=== PATIENT | female | born 1965 | race Caucasian/White ===

== ENCOUNTER → 2024-03-22 | Outpatient (CLI) | payer BC, SELFPAY ==
[2024-03-22 10:28] LABS: Collection Type, Urine Clean Catch
[2024-03-22 10:51] LABS: Basophils % (Auto) 1 % (0-2.5); Eosinophils # (Auto) 0.1 Thou/mm3 (0.0-0.5); Eosinophils % (Auto) 2 % (0-10); Hematocrit 40.3 % (36.0-46.0); Immature Granulocytes % (Auto) 0 % (0-0); Immature Granulocytes Auto 0.02 Thou/mm3 (0.00-0.00); Lymphocytes # (Auto) 0.9 Thou/mm3 (1.0-4.8); Lymphocytes % (Auto) 19 % (10-50); Mean Corpuscular HGB Conc 32.3 g/dl (31.0-37.0); Mean Corpuscular Hemoglobin 29.1 pg (25.0-35.0); Mean Corpuscular Volume 90 fL (80-100); Monocytes # (Auto) 0.5 Thou/mm3 (0.0-0.8); Monocytes % (Auto) 11 % (0-12); Neutrophils # (Auto) 3.3 Thou/mm3 (1.8-7.7); Neutrophils % (Auto) 68 % (37-80); Nucleated Red Blood Cell % 0 /100 WBC (0); Platelet Count 325 Thou/mm3 (140-440); Red Blood Count 4.46 Miln/mm3 (4.00-5.20); White Blood Count 4.8 Thou/mm3 (3.6-11.0)
[2024-03-22 10:59] LABS: Bilirubin,Urine Negative (Negative); Blood,Urine Negative (Negative); Clarity,Urine Clear (Clear/Hazy); Color,Urine Lt-Yellow (Lt Yel-Yel); Culture Indicated,Urine Not Indicated; Glucose, Urine Negative (Negative); Ketones,Urine Negative (Negative); Leukocyte Esterase,Urine Negative (Negative); Nitrite,Urine Negative (Negative); PH,Urine 6.5 (5.0-7.0); Protein,Urine Negative (Neg - Trace); RBC,Urine 1 /hpf (0-3); Specific Gravity,Urine 1.014 (1.001-1.035); Squamous Epithelial Cell,Urine < 1 /hpf (0-5); Urobilinogen,Urine Negative mg/dL (0.0-1.0); WBC,Urine < 1 /hpf (0-5)
[2024-03-22 11:00] LABS: Alanine Aminotransferase 16 U/L (10-49); Albumin, Serum 4.8 gm/dL (3.5-5.0); Anion Gap 8 (7-16); Aspartate Amino Transferase < 8 U/L (0-34); BUN/Creatinine Ratio 24 Ratio (12-20); Bilirubin,Total 0.5 mg/dL (0.3-1.2); Blood Urea Nitrogen 19 mg/dL (9-23); C-Reactive Protein < 0.4 mg/dL (0.0-0.9); Calcium 9.8 mg/dL (8.3-10.6); Calcium (Corrected) 9.8 mg/dL (8.5-10.1); Carbon Dioxide 31.2 mMol/L (20.0-31.0); Chloride 101 mMol/L (98-107); Creatinine (Component) 0.8 mg/dL (0.6-1.3); Globulin 2.3 gm/dL (2.3-3.5); Glucose 92 mg/dL (74-106); Osmolality,Calculated 281 (275-295); Potassium 3.7 mMol/L (3.4-5.1); Sodium 140 mMol/L (136-145); Total Protein 7.1 gm/dL (5.7-8.2); eGFR > 60 See Note
[2024-03-22 11:01] LABS: Albumin/Globulin Ratio 2.1 (1.2-2.2); Alkaline Phosphatase 84 U/L (46-116)
[2024-03-22 11:25] LABS: Sed Rate (ESR) 9 mm/hr (0-30)
[2024-03-29 06:46] LABS: Complement Component C3* 139 mg/dL (83-193); Complement Component C4c* 21 mg/dL (15-57); DNA (ds) Antibody* <1 IU/mL
== END | disposition home or self-care (01) ==
LOC: COPL 09:48
PROVIDERS: PCP Family Medicine; Referring Provider Physician Assistant; Visit Provider Physician Assistant
DX: M32.9 Systemic lupus erythematosus, unspecified (principal)
CPT/HCPCS: 36415; 80053; 81001; 85025; 85652; 86140; 86160; 86225

== ENCOUNTER 2024-04-22 11:20 | Outpatient (RCR) | payer BC, SELFPAY ==
--- NOTE | 2024-04-25 21:42 | CTCFLWUP_ITS ---
Patient: MARGUERITE MEJIAS : 1965 Page 4 of 5 FOLLOW UP NOTE DATE OF SERVICE: 04/22/2024 NAME: MARGUERITE MEJIAS ACCOUNT: [id number] : 1965 AGE: 58 INTERVAL HISTORY: Patient doing well and have no new complaints ONCOLOGY HISTORY: DIAGNOSIS: Other venous embolism and thrombosis of other specified veins [ICD9] 453.80*; Weakness [ICD10] R53.1; Malignant neoplasm of upper-outer quadrant of left female breast [ICD10] C50.412; Phlebitis and thrombophlebitis of other sites [ICD10] I80.8; Weakness [ICD10] R53.1 DATE OF DIAGNOSIS: 04/02/2013: STAGE/TNM: IIB T2 N1 M0 TREATMENT HISTORY: Care?Plan Start?Date Cycle Day Intent DOXOrubicin?60,?Cyclophos?600?+?G 05/06/2013 1 21 Curative?(primary) DOCEtaxel?75?mg/m*2?-?Breast 08/05/2013 1 21 Curative?(primary) Reclast 12/15/2023 1 365 Palliative HISTORY OF PRESENT ILLNESS: Marguerite Mejias is a 58-year-old ENG speaking female with following oncology history. 04/02/2013: Patient had left breast mass biopsy. Pathology showed ER positive, UT positive, HER-2/ellie negative poorly differentiated invasive ductal carcinoma. 05/06/2013?09/16/2013: Patient received 4 cycles of AC chemotherapy and 3 cycles of Taxotere chemotherapy in the neoadjuvant setting. Patient developed blood clot around the Chemo-Port on the left side as well as left jugular and left upper extremity DVT which subsequently resolved 10/20/2013: Patient had left breast lumpectomy and sentinel lymph node biopsy. She was found to have 1.4 cm moderately differentiated infiltrating ductal carcinoma without any vascular or perineural invasion. 6 lymph nodes were negative for metastatic disease. Was staged as a stage Ia disease. 12/22/2013?02/10/2014: Patient received 5040 cGy of radiation therapy. 02/14/2014: Patient was started on letrozole which was subsequently changed to Aromasin. 03/16/2014: Bone density test showed osteoporosis based on lumbar spine measurements and osteopenia based on hip measurements. 02/27/2015?06/22/2018: Patient was on Prolia. 03/15/2019: Bone density test?There is osteopenia taste on lumbar spine measurements. There is osteopenia based on hip measurements Lumbar mineralization is decreased 2.0% compared with 12/12/2016. Hip mineralization is increased 9.4% compared with 12/12/2016 07/18/2021: [facility] CAD diagnostic BI 08/03/2021: US breast BI complete 11/29/2022: Bone density test 12/18/2023: Right breast diagnostic mammogram? 12/18/2023: Right breast ultrasound OTHER MEDICAL HISTORY/CONDITIONS: FAMILY HISTORY: ?Clone Family Hx? 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 Citracal + D Maximum - 315 mg-6.25 mcg (250 unit) 2 tab Daily 2. doxycycline hyclate - 20 mg 1 tab Daily 3. fluticasone furoate - 50 mcg/actuation As directed 4. hydroxychloroquine - 200 mg 1 tab Twice a Day 5. ivermectin - 1 % Daily 6. lamoTRIgine - 150 mg 1 tab Twice a Day 7. Vitamin D2 - 1,000 unit 1 Capsule Weekly?Palabra Meds? Medications Last Reconciled by Niayh Rojas MD on 04/22/2024 ALLERGIES: No Known Drug Allergies; cayenne pepper REVIEW OF SYSTEMS: A complete 14-point review of systems was performed and is negative except as noted in interval history. PHYSICAL EXAMINATION: VITAL SIGNS: Temperature?99.3, B/P?165/90, Oxygen?Saturation?97% Weight?152?lbs PAIN: 0 - No pain ECOG Performance Status: 0 - Asymptomatic and fully active GENERAL APPEARANCE: Appears well, in no apparent distress, appropriately interactive. HEENT: Normocephalic, no temporal wasting, normal conjunctiva, no scleral icterus, normal hearing, lips without lesions, neck normal range of motion. CARDIOVASCULAR: Not assessed. PULMONARY: Normal respiratory effort, no respiratory distress or use of accessory muscles, speaking in full sentences, no tachypnea. EXTREMITIES: No pedal edema or cyanosis. SKIN: Normal skin appearance. NEUROLOGIC: Alert and oriented x4. PSHYCHIATRIC: Appropriate affect, mood normal, behavior normal, intact thought and speech. LABORATORY DATA: I have personally reviewed and interpreted each of the patient?s relevant lab tests, abnormal findings are below: Date 03/22/24 ??GLUCOSE,RANDOM?(mg/dL) 92 ??BLOOD?UREA?NITROGEN?(mg/dL) 19 ??CREATININE?(mg/dL) 0.80 ??SODIUM?(mmol/L) 140 ??POTASSIUM?(mmol/L) 3.7 ??CHLORIDE?(mmol/L) 101 ??CrCl?(CandG)?(ml/min) 80.24 ??AST/SGOT?(Unit/L) <?8 ??ALT/SGPT?(Unit/L) 16 ??ALKALINE?PHOSPHATASE?(Unit/L) 84 ??BILIRUBIN,?TOTAL?(mg/dL) 0.5 ??PROTEIN?TOTAL?(gm/dl) 7.1 ??ALBUMIN,?SERUM?(gm/dl) 4.8 ??GLOBULIN?(gm/dl) 2.3 ??ALBUMIN/GLOBULIN?RATIO 2.1 ??CALCIUM,?SERUM?(mg/dL) 9.8 ??CALCIUM?SERUM?(CORRECTED)?(mg/dL) 9.8 ASSESSMENT/PLAN: 1. History of stage Ia ER positive, UT positive, HER-2/ellie negative moderately differentiated invasive ductal carcinoma of the left breast status post neoadjuvant chemotherapy, left breast lumpectomy left axillary sentinel node biopsy followed by radiation therapy. Stopped taking Aromasin on 01/14/2023. 2. Osteoporosis bone density test done on 11/29/2022 showed osteoporosis as documented above. 3. History of epilepsy. 4. History of lupus currently on hydroxychloroquine 1. Patient's cystic lesion in the right breast was biopsied and interventional radiologist send it for culture sensitivity which came back negative. There was no tissue obtainable with the biopsy. 2. Patient is exclusively tender on the spot of biopsy. Will repeat mammogram in 6 months 3. continue Reclast 5 mg IV once a year. 4. Continue calcium and vitamin D. CBC CMP RETURN TO CLINIC: I will see her back in the clinic in 6 month. BILLING AND COMPLIANCE: I reviewed external records from providers outside my specialty as summarized above. I spent a total of 50 minutes on this patient?s care on the day of their visit excluding time spent related to any billed procedures. This time includes time spent with the patient as well as time spent documenting in the medical record, reviewing patients records and tests, obtaining history, placing orders, communicating with other healthcare professionals, counseling the patient, family or caregiver, and/or care coordination for the diagnoses above. Electronically Signed by: Henok Botello MD T: 9:40 PM CC: Fermín?Milagros,?Olegario EDDY?Shyla? PCP: Eleazar Lewis Referring: Eleazar Lewis This document was completed utilizing speech recognition software. Grammatical errors, random word insertions, pronoun errors, and incomplete sentences are an occasional consequence of this system due to software limitations, ambient noise, and hardware issues. Any formal questions or concerns about the content, text or information contained within the body of this dictation should be directly addressed to the provider for clarification.
== END 2024-04-23 23:59 | disposition home or self-care (01) ==
LOC: SCTC 11:20
PROVIDERS: PCP Family Medicine; Referring Provider Family Medicine; Visit Provider Internal Medicine Hematology & Oncology
DX: Z08 Encounter for follow-up examination after completed treatment for malignant neoplasm (principal); Z85.3 Personal history of malignant neoplasm of breast; Z90.12 Acquired absence of left breast and nipple; Z92.21 Personal history of antineoplastic chemotherapy; Z92.3 Personal history of irradiation; M81.0 Age-related osteoporosis without current pathological fracture; Z87.39 Personal history of other diseases of the musculoskeletal system and connective tissue
CPT/HCPCS: 99212; 99213; G0463

== ENCOUNTER → 2024-05-20 | Outpatient (CLI) | payer BC, SELFPAY ==
--- NOTE | 2024-05-20 15:11 | XR_ITS ---
Examination: Retroperitoneal ultrasound, complete Technique: Multiple high resolution grayscale images of the retroperitoneum obtained, including kidneys and bladder. Exam date and time:May 20, 2024 at 1516 hrs. Indications: Bilateral flank pain beginning 2 weeks ago, history urinary tract infections Findings: Right kidney 11.5 cm cortex 1.4 cm Left kidney 10.8 cm cortex 1.9 cm 10 mm left renal cyst Moderate bilateral renal parenchymal scar formation No hydronephrosis Contracted urinary bladder Impression: Moderate bilateral renal parenchymal scar formation No hydronephrosis
== END | disposition home or self-care (01) ==
LOC: CDIM 15:00
PROVIDERS: PCP Family Medicine; Referring Provider Student in an Organized Health Care Education/Training Program; Visit Provider Student in an Organized Health Care Education/Training Program
DX: N28.89 Other specified disorders of kidney and ureter (principal)
CPT/HCPCS: 76770

== ENCOUNTER → 2024-05-21 | Outpatient (CLI) | payer BC, SELFPAY | END | disposition home or self-care (01) | LOC: SLDO 14:50 | PROVIDERS: Referring Provider Family Medicine; Visit Provider Family Medicine | DX: N39.0 Urinary tract infection, site not specified (principal) | CPT/HCPCS: 87086 ==

== ENCOUNTER → 2024-05-27 | Outpatient (CLI) | payer BC, SELFPAY ==
[2024-05-27 15:45] LABS: Collection Type, Urine Clean Catch
[2024-05-27 16:04] LABS: Basophils % (Auto) 1 % (0-2.5); Eosinophils # (Auto) 0.1 Thou/mm3 (0.0-0.5); Eosinophils % (Auto) 1 % (0-10); Hematocrit 39.5 % (36.0-46.0); Hemoglobin 13.2 g/dL (12.0-16.0); Immature Granulocytes % (Auto) 1 % (0-0); Immature Granulocytes Auto 0.04 Thou/mm3 (0.00-0.00); Lymphocytes # (Auto) 1.2 Thou/mm3 (1.0-4.8); Lymphocytes % (Auto) 16 % (10-50); Mean Corpuscular HGB Conc 33.4 g/dl (31.0-37.0); Mean Corpuscular Hemoglobin 28.5 pg (25.0-35.0); Mean Corpuscular Volume 85 fL (80-100); Monocytes # (Auto) 0.9 Thou/mm3 (0.0-0.8); Monocytes % (Auto) 11 % (0-12); Neutrophils # (Auto) 5.5 Thou/mm3 (1.8-7.7); Neutrophils % (Auto) 71 % (37-80); Nucleated Red Blood Cell % 0 /100 WBC (0); Platelet Count 453 Thou/mm3 (140-440); RDW Standard Deviation 40.6 fL (36.4-46.3); Red Blood Count 4.63 Miln/mm3 (4.00-5.20); White Blood Count 7.7 Thou/mm3 (3.6-11.0)
[2024-05-27 16:08] LABS: Bilirubin,Urine Negative (Negative); Blood,Urine Negative (Negative); Clarity,Urine Clear (Clear/Hazy); Color,Urine Lt-Yellow (Lt Yel-Yel); Culture Indicated,Urine Not Indicated; Glucose, Urine Negative (Negative); Ketones,Urine Negative (Negative); Leukocyte Esterase,Urine Negative (Negative); Nitrite,Urine Negative (Negative); PH,Urine 6.5 (5.0-7.0); Protein,Urine Trace (Neg - Trace); RBC,Urine < 1 /hpf (0-3); Specific Gravity,Urine 1.013 (1.001-1.035); Squamous Epithelial Cell,Urine < 1 /hpf (0-5); Urobilinogen,Urine Negative mg/dL (0.0-1.0); WBC,Urine 2 /hpf (0-5)
[2024-05-27 16:13] LABS: Glucose Estimated Average 97 mg/dL (80-131)
[2024-05-27 16:20] LABS: Alanine Aminotransferase 63 U/L (10-49); Albumin, Serum 4.4 gm/dL (3.4-4.8); Albumin/Globulin Ratio 1.9 (1.2-2.2); Alkaline Phosphatase 120 U/L (46-116); Anion Gap 7 (7-16); Aspartate Amino Transferase 38 U/L (0-34); BUN/Creatinine Ratio 20 Ratio (12-20); Bilirubin,Total 0.5 mg/dL (0.3-1.2); Blood Urea Nitrogen 16 mg/dL (9-23); Calcium 9.4 mg/dL (8.3-10.6); Calcium (Corrected) 9.4 mg/dL (8.5-10.1); Carbon Dioxide 30.4 mMol/L (20.0-31.0); Cardiac Risk Estimate 3.3 RATIO (3.7-5.6); Chloride 101 mMol/L (98-107); Cholesterol 196 mg/dL (132-200); Creatinine (Component) 0.8 mg/dL (0.6-1.3); Globulin 2.3 gm/dL (2.3-3.5); Glucose 93 mg/dL (74-106); HDL Cholesterol 59 mg/dL (40-60); LDL Cholesterol,Calculated 120 mg/dL (0-130); Osmolality,Calculated 276 (275-295); Potassium 3.9 mMol/L (3.4-5.1); Sodium 138 mMol/L (136-145); Total Protein 6.7 gm/dL (5.7-8.2); Triglycerides 86 mg/dL (30-150); eGFR > 60 See Note
== END | disposition home or self-care (01) ==
LOC: COPL 15:15
PROVIDERS: PCP Internal Medicine; Referring Provider Internal Medicine; Visit Provider Internal Medicine
DX: G40.909 Epilepsy, unspecified, not intractable, without status epilepticus (principal); M32.9 Systemic lupus erythematosus, unspecified; N39.0 Urinary tract infection, site not specified
CPT/HCPCS: 36415; 80053; 80061; 81001; 83036; 85025

== ENCOUNTER → 2024-06-07 | Outpatient (CLI) | payer BC, SELFPAY ==
--- NOTE | 2024-06-07 12:26 | XR_ITS ---
Examination: CT abdomen and pelvis without contrast. Coronal 3-D reconstructions. Sagittal 2-D reconstructions. Date and time of exam:June 07, 2024 1231 hours Comparison PET/CT scan June 19, 2018 INDICATIONS: Left-sided flank pain beginning 3 weeks ago CTDI: vol (mGy): 10.5 DLP: (mGycm): 539 Technique: Axial images of the abdomen have been obtained, 3 mm slice thickness Intravenous contrast material has not been administered. Low dose protocols were performed. One or more of the following dose reduction techniques were used; automated exposure control, adjustment of the mA and/or KV according to patient size, use of iterative reconstruction technique. Findings: No focal liver or splenic lesions Cholelithiasis No pancreatic or adrenal mass Moderate bilateral renal parenchymal scar formation 4 mm nonobstructing right renal calculus 6 mm fat-containing umbilical hernia No bowel obstruction Normal appendix No diverticulitis Atrophic uterus No adnexal mass No bladder mass or bladder calculi IMPRESSION: Cholelithiasis, consider hepatobiliary sonography follow-up Moderate bilateral renal parenchymal scar formation 4 mm nonobstructing right renal calculus Normal appendix
== END | disposition home or self-care (01) ==
LOC: CDIM 12:18
PROVIDERS: Referring Provider Student in an Organized Health Care Education/Training Program; Visit Provider Student in an Organized Health Care Education/Training Program
DX: K80.20 Calculus of gallbladder without cholecystitis without obstruction (principal); N28.89 Other specified disorders of kidney and ureter; N20.0 Calculus of kidney
CPT/HCPCS: 74176

== ENCOUNTER → 2024-06-11 | Outpatient (CLI) | payer BC, SELFPAY ==
[2024-06-11 15:24] LABS: Basophils % (Auto) 0 % (0-2.5); Eosinophils # (Auto) 0.1 Thou/mm3 (0.0-0.5); Eosinophils % (Auto) 2 % (0-10); Hematocrit 38.6 % (36.0-46.0); Hemoglobin 12.6 g/dL (12.0-16.0); Immature Granulocytes % (Auto) 0 % (0-0); Immature Granulocytes Auto 0.01 Thou/mm3 (0.00-0.00); Lymphocytes # (Auto) 1.1 Thou/mm3 (1.0-4.8); Lymphocytes % (Auto) 29 % (10-50); Mean Corpuscular HGB Conc 32.6 g/dl (31.0-37.0); Mean Corpuscular Hemoglobin 28.5 pg (25.0-35.0); Mean Corpuscular Volume 87 fL (80-100); Monocytes # (Auto) 0.4 Thou/mm3 (0.0-0.8); Monocytes % (Auto) 11 % (0-12); Neutrophils # (Auto) 2.2 Thou/mm3 (1.8-7.7); Neutrophils % (Auto) 57 % (37-80); Nucleated Red Blood Cell % 0 /100 WBC (0); Platelet Count 322 Thou/mm3 (140-440); RDW Standard Deviation 42.6 fL (36.4-46.3); Red Blood Count 4.42 Miln/mm3 (4.00-5.20); White Blood Count 3.9 Thou/mm3 (3.6-11.0)
[2024-06-11 15:55] LABS: Alanine Aminotransferase 12 U/L (10-49); Albumin, Serum 4.2 gm/dL (3.4-4.8); Albumin/Globulin Ratio 1.7 (1.2-2.2); Alkaline Phosphatase 88 U/L (46-116); Anion Gap 8 (7-16); Aspartate Amino Transferase 22 U/L (0-34); BUN/Creatinine Ratio 13 Ratio (12-20); Bilirubin,Total 0.3 mg/dL (0.3-1.2); Blood Urea Nitrogen 10 mg/dL (9-23); Calcium 9.5 mg/dL (8.3-10.6); Calcium (Corrected) 9.5 mg/dL (8.5-10.1); Carbon Dioxide 29.6 mMol/L (20.0-31.0); Chloride 101 mMol/L (98-107); Creatinine (Component) 0.8 mg/dL (0.6-1.3); Globulin 2.5 gm/dL (2.3-3.5); Glucose 86 mg/dL (74-106); Osmolality,Calculated 275 (275-295); Potassium 3.6 mMol/L (3.4-5.1); Sodium 139 mMol/L (136-145); Total Protein 6.7 gm/dL (5.7-8.2); eGFR > 60 See Note
[2024-06-11 15:58] LABS: Sed Rate (ESR) 6 mm/hr (0-30)
[2024-06-21 06:57] LABS: Complement Component C3* 145 mg/dL (83-193); Complement Component C4c* 22 mg/dL (15-57); DNA (ds) Antibody* <1 IU/mL
== END | disposition home or self-care (01) ==
LOC: COPL 14:02
PROVIDERS: PCP Family Medicine; Referring Provider Physician Assistant; Visit Provider Physician Assistant
DX: M32.9 Systemic lupus erythematosus, unspecified (principal)
CPT/HCPCS: 36415; 80053; 85025; 85652; 86160; 86225

== ENCOUNTER → 2024-06-11 | Outpatient (CLI) | payer BC, SELFPAY ==
[2024-06-11 15:52] LABS: Collection Type, Urine Clean Catch
[2024-06-11 16:40] LABS: Bilirubin,Urine Negative (Negative); Blood,Urine Negative (Negative); Clarity,Urine Clear (Clear/Hazy); Color,Urine Lt-Yellow (Lt Yel-Yel); Glucose, Urine Negative (Negative); Ketones,Urine Negative (Negative); Leukocyte Esterase,Urine Negative (Negative); Nitrite,Urine Negative (Negative); Protein,Urine Trace (Neg - Trace); RBC,Urine < 1 /hpf (0-3); Specific Gravity,Urine 1.014 (1.001-1.035); Squamous Epithelial Cell,Urine < 1 /hpf (0-5); Urobilinogen,Urine Negative mg/dL (0.0-1.0); WBC,Urine 1 /hpf (0-5)
== END | disposition home or self-care (01) ==
LOC: SLDO 15:28
PROVIDERS: PCP Student in an Organized Health Care Education/Training Program; Referring Provider Student in an Organized Health Care Education/Training Program; Visit Provider Student in an Organized Health Care Education/Training Program
DX: N39.0 Urinary tract infection, site not specified (principal)
CPT/HCPCS: 81001; 87086

== ENCOUNTER → 2024-06-14 | Outpatient (CLI) | payer BC, SELFPAY ==
--- NOTE | 2024-06-14 10:00 | XR_ITS ---
Examination: Breast ultrasound complete, bilateral Date and time of exam: June 14, 2024 at 1027 hours INDICATIONS: Left breast pain today, history right lumpectomy 2013 Technique: Real-time grayscale ultrasonographic imaging bilateral breasts, including all 4 quadrants as well as nipple retroareolar and axillary regions. Findings: No cystic or solid mass involving either breast IMPRESSION: BI-RADS Category 1: Negative studies
== END | disposition home or self-care (01) ==
PROVIDERS: PCP Internal Medicine Hematology & Oncology; Referring Provider Internal Medicine Hematology & Oncology; Visit Provider Internal Medicine Hematology & Oncology
DX: N64.4 Mastodynia (principal); C50.412 Malignant neoplasm of upper-outer quadrant of left female breast
CPT/HCPCS: 76641

== ENCOUNTER 2024-06-21 09:53 | Outpatient (AMB) | payer BC, SELFPAY ==
--- NOTE | 2024-06-21 10:04 | PD.GSCLVISIT ---
Vital Signs - [facility] 06/21/24 10:05 Height 1.63 m Height Method Stated Weight 72.121 kg Weight Measurement Method Standing Scale BMI 27.3 BP 136/84 H Blood Pressure Source Automatic Cuff Blood Pressure Location Right Upper Arm Position Sitting Respiration 19 Pulse 81 Pulse Source Monitor Temp 97.8 F Temp Source Temporal Artery Scan Pulse Oximetry (%) 98 Oxygen Delivery Method Room Air Med/Allergies Allergies & Medications Allergies No Known Allergies Allergy (Verified 06/21/24 10:05) Medication Reconciliation doxycycline hyclate 20 mg tablet 20 mg PO BID 06/21/24 [History Confirmed 06/21/24] fluticasone furoate 27.5 mcg/actuation nasal spray,suspension 1 spray intranasal QDAY 06/21/24 [History Confirmed 06/21/24] hydroxychloroquine 200 mg tablet 200 mg PO QDAY 06/21/24 [History Confirmed 06/21/24] lamotrigine 150 mg tablet 150 mg PO QDAY 06/21/24 [History Confirmed 06/21/24] omeprazole 20 mg capsule,delayed release 20 mg PO QDAY 06/21/24 [History Confirmed 06/21/24] tamsulosin 0.4 mg capsule 0.4 mg PO QDAY 06/21/24 [History Confirmed 06/21/24] MA Intake Visit Data Collection New Patient or Established: New Patient (never been to [facility]) Seen by Clinical Staff ONLY (RN/MA): No Reason for Visit:: GALLBLADDER 2ND OPINION Pain Present Currently: No PCP or OBGYN visit in last 3 months: Yes Hx Now: No Do You Feel Safe at Home: Yes Authorities Contacted: N/A Smoking Status Smoking Status: Never smoker Immunization / Flu Flu Vaccine in the Last 12 Months: No Flu Vaccine Exclusion Criteria: Refused by Patient Past Medical History Past Medical History NEUROLOGIC: Positive Neurological Disorders, Meningitis (at 8 months old) and Seizures (1996); Negative Migraine (headaches) CARDIAC: Positive Cardiac Disorders (Clots in right jugular vein); Negative Congestive Heart Failure RESPIRATORY: Negative Chronic Obstructive Pulmonary Disease (COPD) GASTROINTESTINAL: Positive Gastrointestinal Disorders, Gall Bladder Disease (gall stone) and Gastroesophageal Reflux Disease; Negative Hiatal Hernia GENITOURINARY: Positive Genitourinary Disorders and Inguinal Hernia (surgery 1982); Negative Renal Disease REPRODUCTIVE: Positive Breast Cancer and Previous Pregnancies (3); Negative Pelvic Inflammatory Disease MUSCULOSKELETAL: Positive Osteoporosis and Fractures (left elbow 1971) ENDOCRINE: Negative Endocrine Disorders or Diabetes Mellitus Type 1 HEMATOLOGIC: Positive Clotting Problems (right jugular vein) OTHER HISTORY: Positive Hospitalization, Chemotherapy (x7), Radiation Therapy (x35), Chicken Pox and Breast Cancer Family History FAMILY HISTORY: Positive Family Gastrointestinal Problems (mom-polyps, diverticulitis; dad-hernia) and Family Surgery (dad-intestinal gangrene, Antithrombin III) Surgical History SURGICAL: Positive Ear Surgery, Tonsillectomy (1977), Abdominal Surgery, Lumpectomy (x2 on left) and Tubal Ligation; Negative Cardiac Surgery Social History SMOKING STATUS: Smoking status: Never smoker ALCOHOL: Alcohol Intake: Never HPI HPI Narrative 59F referred for finding of gallstones on CT. Pt reports that she underwent CT because she had been having left sided flank pain for approx 3 weeks, associated with fever and malaise, with no clear inciting or exacerbating factors. Pt states the pain was severe, 10/10 and improved with repositioning herself. She denies any epigastric/RUQ pain, and denies any association of pain with eating. CT showed cholelithiasis and a non-obstructing kidney stone on the right, though pt did not note any urinary frequency or dysuria and UA was negative for signs of UTI Pt states she has never had episodes of epigastric/RUQ pain PMH: Lupus, epilepsy (pt states is well controlled since her surgery in 1996 but she still sometimes has aura leading to migraines, most recently 1 mo ago), history of breast CA PSHx: Neurologic surgery for seizures in 1996, tonsillectomy, R hernia repair, R breast lumpectomy 2013 Meds: Hydroxychloroquine, omeprazole, doxycycline, fluticasone, lamotrigine, flomax Allergies: NKDA Family hx: No known malignancies ROS Review of Systems Systems Reviewed: All systems reviewed, normal except as documented Objective/Exam General General Appearance: alert, cooperative and well groomed Resp Respiratory exam: Absent respiratory distress Abdominal Abdominal exam: Present soft; Absent distention, tenderness or Sargent's sign Results CT reviewed Assessment & Plan Diagnosis / Problem List (1) Asymptomatic cholelithiasis: Status: Acute Assessment & Plan: 59F with lupus, history of epilepsy and breast CA referred for cholelithiasis found on workup of left flank pain. Pt has not had any symptoms attributable to cholelithiasis so I explained that surgery is not likely to confer any benefit. I counseled pt on the signs/symptoms to look out for and encouraged her to reach out if these symptoms develop or if she has any questions or concerns. All questions were answered and pt is agreeable to this plan Office Procedures GNS Level of Care Nursing/Assessment Patient Status: Initial/New Patient Nursing Assessment/Reassesment: Medication Reconciliation, Update PMH in EMR and Vital Signs Coordination of Care: Complex Care and Chronic Disease 1-5, Consent,records obtained, informed consent, Education Simp Pt/Fam, Results/Orders obtained and Staff clarify orders New Patient Charge New Patient Point Assignment: [id number] New Patient Point Charge: AIRCRAFT INSTRUMENT TESTER Level 3 ([id number]) Patient Portal Questionaires Social History Tobacco History Smoking Status: Never smoker Alcohol History Alcohol Intake: Never Domestic Abuse History Do You Feel Safe at Home: Yes Review of Systems Report any current symptoms Only answer those that you have currently: Past Medical History Past Medical History Have you ever been diagnosed with any of the following: Neurological Problems Meningitis: Yes (at 8 months old) Seizures: Yes (1996) Migraine: No (headaches) Cardiology Problems Congestive Heart Failure: No Respiratory Problems Chronic Obstructive Pulmonary Disease (COPD): No Stomache/Intestinal Problems Gall Bladder Disease: Yes (gall stone) Hiatal Hernia: No Gastroesophageal Reflux Disease: Yes Genital/Urinary Problems Renal Disease: No Inguinal Hernia: Yes (surgery 1982) Reproductive Problems Breast Cancer: Yes Pelvic Inflammatory Disease: No Previous Pregnancies: Yes (3) Musculoskeletal Problems Osteoporosis: Yes Fractures: Yes (left elbow 1971) Endocrine Problems Diabetes Mellitus Type 1: No Blood Problems Clotting Problems: Yes (right jugular vein) Other Problems Hospitalization: Yes Chemotherapy: Yes (x7) Radiation Therapy: Yes (x35) Chicken Pox: Yes
[2024-06-21 10:05] VITALS: BP 136/84; PULSE 81; RESP 19; TEMP 36.6; O2SAT 98; BMI 27.3
== END 2024-06-21 10:27 | disposition home or self-care (01) ==
LOC: HODSRG 09:53
PROVIDERS: PCP Student in an Organized Health Care Education/Training Program; Referring Provider Student in an Organized Health Care Education/Training Program; Supervising Provider Surgery; Visit Provider Surgery
DX: K80.20 Calculus of gallbladder without cholecystitis without obstruction (principal)
CPT/HCPCS: 99203; G0463

== ENCOUNTER → 2024-07-06 | Outpatient (CLI) | payer BC, SELFPAY ==
[2024-07-06 13:08] LABS: Basophils % (Auto) 0 % (0-2.5); Eosinophils # (Auto) 0.1 Thou/mm3 (0.0-0.5); Eosinophils % (Auto) 2 % (0-10); Hematocrit 40.1 % (36.0-46.0); Immature Granulocytes % (Auto) 0 % (0-0); Immature Granulocytes Auto 0.01 Thou/mm3 (0.00-0.00); Lymphocytes % (Auto) 21 % (10-50); Mean Corpuscular HGB Conc 32.4 g/dl (31.0-37.0); Mean Corpuscular Hemoglobin 29.5 pg (25.0-35.0); Mean Corpuscular Volume 91 fL (80-100); Monocytes # (Auto) 0.6 Thou/mm3 (0.0-0.8); Monocytes % (Auto) 12 % (0-12); Neutrophils # (Auto) 3.1 Thou/mm3 (1.8-7.7); Neutrophils % (Auto) 65 % (37-80); Nucleated Red Blood Cell % 0 /100 WBC (0); Platelet Count 310 Thou/mm3 (140-440); RDW Standard Deviation 45.9 fL (36.4-46.3); White Blood Count 4.8 Thou/mm3 (3.6-11.0)
[2024-07-06 13:11] LABS: Creatinine,Random Urine 110 mg/dL (30-125); Protein Total, Random Urine 27 mg/dL (1-14)
[2024-07-06 13:15] LABS: Parathyroid Hormone Intact 73.6 pg/ml (18.5-88.0)
[2024-07-06 13:19] LABS: Albumin, Serum 4.6 gm/dL (3.4-4.8); Anion Gap 8 (7-16); BUN/Creatinine Ratio 16 Ratio (12-20); Blood Urea Nitrogen 14 mg/dL (9-23); Calcium 9.5 mg/dL (8.3-10.6); Calcium (Corrected) 9.5 mg/dL (8.5-10.1); Carbon Dioxide 31.3 mMol/L (20.0-31.0); Chloride 103 mMol/L (98-107); Creatinine (Component) 0.9 mg/dL (0.6-1.3); Glucose 77 mg/dL (74-106); Osmolality,Calculated 282 (275-295); Phosphorous 3.2 mg/dL (2.4-5.1); Potassium 4.5 mMol/L (3.4-5.1); Sodium 142 mMol/L (136-145); eGFR > 60 See Note
== END | disposition home or self-care (01) ==
LOC: COPL 11:45
PROVIDERS: PCP Family Medicine; Referring Provider Internal Medicine; Visit Provider Internal Medicine
DX: E55.9 Vitamin D deficiency, unspecified (principal); M32.9 Systemic lupus erythematosus, unspecified; R80.9 Proteinuria, unspecified
CPT/HCPCS: 36415; 80069; 82570; 83970; 84156; 85025

== ENCOUNTER → 2024-09-08 | Outpatient (CLI) | payer BC, SELFPAY ==
--- NOTE | 2024-09-08 11:00 | XR_ITS ---
Examination: Breast ultrasound complete, bilateral Date and time of exam: September 08, 2024 1057 hours INDICATIONS: Personal history left breast cancer lumpectomy 2013 Technique: Real-time grayscale ultrasonographic imaging bilateral breasts, including all 4 quadrants as well as nipple retroareolar and axillary regions. Findings: Sonographic images right breast 4:00 cyst 9 x 7 mm No solid nodules Sonographic images left breast 4:00 cyst 3 x 3 mm No solid nodules IMPRESSION: BI-RADS Category 2: Benign findings
== END | disposition home or self-care (01) ==
PROVIDERS: PCP Family Medicine; Referring Provider Internal Medicine Hematology & Oncology; Visit Provider Internal Medicine Hematology & Oncology
DX: C50.412 Malignant neoplasm of upper-outer quadrant of left female breast (principal); I80.8 Phlebitis and thrombophlebitis of other sites; R53.1 Weakness
CPT/HCPCS: 76641

== ENCOUNTER → 2024-09-14 | Outpatient (CLI) | payer BC, SELFPAY ==
[2024-09-14 14:23] LABS: Basophils % (Auto) 0 % (0-2.5); Eosinophils # (Auto) 0.1 Thou/mm3 (0.0-0.5); Eosinophils % (Auto) 1 % (0-10); Hematocrit 39.1 % (36.0-46.0); Hemoglobin 13.1 g/dL (12.0-16.0); Immature Granulocytes % (Auto) 0 % (0-0); Immature Granulocytes Auto 0.01 Thou/mm3 (0.00-0.00); Lymphocytes % (Auto) 20 % (10-50); Mean Corpuscular HGB Conc 33.5 g/dl (31.0-37.0); Mean Corpuscular Hemoglobin 29.1 pg (25.0-35.0); Mean Corpuscular Volume 87 fL (80-100); Monocytes # (Auto) 0.5 Thou/mm3 (0.0-0.8); Monocytes % (Auto) 10 % (0-12); Neutrophils # (Auto) 3.5 Thou/mm3 (1.8-7.7); Neutrophils % (Auto) 68 % (37-80); Nucleated Red Blood Cell % 0 /100 WBC (0); Platelet Count 273 Thou/mm3 (140-440); White Blood Count 5.1 Thou/mm3 (3.6-11.0)
[2024-09-14 14:38] LABS: Collection Type, Urine Clean Catch
[2024-09-14 14:54] LABS: Alanine Aminotransferase 12 U/L (10-49); Albumin, Serum 4.4 gm/dL (3.4-4.8); Albumin/Globulin Ratio 1.8 (1.2-2.2); Alkaline Phosphatase 82 U/L (46-116); Anion Gap 7 (7-16); Aspartate Amino Transferase 25 U/L (0-34); BUN/Creatinine Ratio 13 Ratio (12-20); Bilirubin,Total 0.5 mg/dL (0.3-1.2); Blood Urea Nitrogen 12 mg/dL (9-23); C-Reactive Protein < 0.5 mg/dL (0.0-0.9); Calcium 8.9 mg/dL (8.3-10.6); Calcium (Corrected) 8.9 mg/dL (8.5-10.1); Carbon Dioxide 29.6 mMol/L (20.0-31.0); Chloride 103 mMol/L (98-107); Creatinine (Component) 0.9 mg/dL (0.6-1.3); Globulin 2.4 gm/dL (2.3-3.5); Glucose 101 mg/dL (74-106); Osmolality,Calculated 279 (275-295); Potassium 3.2 mMol/L (3.4-5.1); Sodium 140 mMol/L (136-145); Total Protein 6.8 gm/dL (5.7-8.2); eGFR > 60 See Note
[2024-09-14 15:52] LABS: Bacteria,Urine Rare; Bilirubin,Urine Negative (Negative); Blood,Urine Negative (Negative); Clarity,Urine Clear (Clear/Hazy); Color,Urine Lt-Yellow (Lt Yel-Yel); Culture Indicated,Urine Not Indicated; Glucose, Urine Negative (Negative); Ketones,Urine Negative (Negative); Leukocyte Esterase,Urine Positive (Negative); Nitrite,Urine Negative (Negative); Protein,Urine Trace (Neg - Trace); RBC,Urine 3 /hpf (0-3); Specific Gravity,Urine 1.012 (1.001-1.035); Squamous Epithelial Cell,Urine 1 /hpf (0-5); Urobilinogen,Urine Negative mg/dL (0.0-1.0); WBC,Urine 2 /hpf (0-5)
[2024-09-14 16:15] LABS: Sed Rate (ESR) 4 mm/hr (0-30)
[2024-09-22 06:46] LABS: DNA (ds) Antibody* <1 IU/mL
[2024-09-22 06:47] LABS: Complement Component C3* 137 mg/dL (83-193); Complement Component C4c* 19 mg/dL (15-57)
== END | disposition home or self-care (01) ==
PROVIDERS: PCP Family Medicine; Referring Provider Physician Assistant; Visit Provider Physician Assistant
DX: M32.9 Systemic lupus erythematosus, unspecified (principal)
CPT/HCPCS: 36415; 80053; 81001; 85025; 85652; 86140; 86160; 86225

== ENCOUNTER → 2024-11-04 | Outpatient (CLI) | payer BC, SELFPAY ==
[2024-11-04 13:06] LABS: Basophils # (Auto) 0.0 Thou/mm3 (0.0-0.2); Basophils % (Auto) 1 % (0-2.5); Eosinophils # (Auto) 0.1 Thou/mm3 (0.0-0.5); Eosinophils % (Auto) 2 % (0-10); Hematocrit 40.9 % (36.0-46.0); Hemoglobin 13.4 g/dL (12.0-16.0); Immature Granulocytes Auto 0.01 Thou/mm3 (0.00-0.00); Lymphocytes # (Auto) 1.1 Thou/mm3 (1.0-4.8); Lymphocytes % (Auto) 26 % (10-50); Mean Corpuscular HGB Conc 32.8 g/dl (31.0-37.0); Mean Corpuscular Hemoglobin 29.5 pg (25.0-35.0); Mean Corpuscular Volume 90 fL (80-100); Monocytes # (Auto) 0.5 Thou/mm3 (0.0-0.8); Monocytes % (Auto) 11 % (0-12); Neutrophils # (Auto) 2.4 Thou/mm3 (1.8-7.7); Neutrophils % (Auto) 60 % (37-80); Nucleated Red Blood Cell # 0.00 Thou/mm3 (0.00-0.00); Nucleated Red Blood Cell % 0 /100 WBC (0); Platelet Count 294 Thou/mm3 (140-440); RDW Standard Deviation 44.0 fL (36.4-46.3); Red Blood Count 4.55 Miln/mm3 (4.00-5.20); White Blood Count 4.0 Thou/mm3 (3.6-11.0)
[2024-11-04 13:37] LABS: Alanine Aminotransferase 10 U/L (10-49); Albumin, Serum 4.4 gm/dL (3.4-4.8); Albumin/Globulin Ratio 1.8 (1.2-2.2); Alkaline Phosphatase 79 U/L (46-116); Anion Gap 8 (7-16); Aspartate Amino Transferase 26 U/L (0-34); BUN/Creatinine Ratio 14 Ratio (12-20); Bilirubin,Total 0.4 mg/dL (0.3-1.2); Blood Urea Nitrogen 11 mg/dL (9-23); Calcium 9.5 mg/dL (8.3-10.6); Calcium (Corrected) 9.5 mg/dL (8.5-10.1); Carbon Dioxide 29.3 mMol/L (20.0-31.0); Chloride 105 mMol/L (98-107); Creatinine (Component) 0.8 mg/dL (0.6-1.3); Globulin 2.5 gm/dL (2.3-3.5); Glucose 85 mg/dL (74-106); Osmolality,Calculated 281 (275-295); Potassium 3.8 mMol/L (3.4-5.1); Sodium 142 mMol/L (136-145); Total Protein 6.9 gm/dL (5.7-8.2); eGFR > 60 See Note
== END | disposition home or self-care (01) ==
LOC: COPL 11:08 → SCTO 11:14
PROVIDERS: PCP Family Medicine; Referring Provider Internal Medicine Hematology & Oncology; Visit Provider Internal Medicine Hematology & Oncology
DX: C50.412 Malignant neoplasm of upper-outer quadrant of left female breast (principal); I80.8 Phlebitis and thrombophlebitis of other sites; R53.1 Weakness
CPT/HCPCS: 36415; 80053; 85025

== ENCOUNTER 2024-11-18 10:35 | Outpatient (RCR) | payer BC, SELFPAY | END 2024-11-21 23:59 | disposition home or self-care (01) | LOC: SCTC 10:35 | PROVIDERS: PCP Family Medicine; Referring Provider Family Medicine; Visit Provider Nurse Practitioner Family | DX: Z08 Encounter for follow-up examination after completed treatment for malignant neoplasm (principal); Z85.3 Personal history of malignant neoplasm of breast; Z90.12 Acquired absence of left breast and nipple; Z92.3 Personal history of irradiation; Z92.21 Personal history of antineoplastic chemotherapy; N60.02 Solitary cyst of left breast; N60.01 Solitary cyst of right breast; M81.0 Age-related osteoporosis without current pathological fracture | CPT/HCPCS: 99212; G0463 ==

== ENCOUNTER → 2024-12-29 | Outpatient (CLI) | payer BC, SELFPAY ==
--- NOTE | 2024-12-29 12:40 | XR_ITS ---
Examination: Bone densitometry Date and time of exam: December 29, 2024, 1242 hours INDICATIONS: Menopause age 48, breast carcinoma diagnosis, seizure medication, personal history osteoporosis Technique: Lumbar spine and hip total bone mineralization values of an calculated. Peak reference and age match control results have been displayed. Findings: Lumbar spine total bone mineralization is 0.758 gm/cm2. This is 2.6 standard deviations below peak reference. This is 1.2 standard deviations below age-matched controls. Hip total bone mineralization is 0.743 gm/cm2 This is 1.6 standard deviations below peak reference. This is 0.7 standard deviations below age-matched controls Impression: There is osteoporosis based on lumbar spine measurements. There is osteopenia based on hip measurements Lumbar mineralization is increased 6.3% compared with 12/09/2022 Hip mineralization is decreased 7.7% compared with December 09, 2022
[2024-12-29 13:05] LABS: Basophils # (Auto) 0.0 Thou/mm3 (0.0-0.2); Basophils % (Auto) 1 % (0-2.5); Eosinophils # (Auto) 0.1 Thou/mm3 (0.0-0.5); Eosinophils % (Auto) 2 % (0-10); Hematocrit 39.7 % (36.0-46.0); Hemoglobin 12.9 g/dL (12.0-16.0); Immature Granulocytes Auto 0.01 Thou/mm3 (0.00-0.00); Lymphocytes # (Auto) 1.1 Thou/mm3 (1.0-4.8); Lymphocytes % (Auto) 19 % (10-50); Mean Corpuscular HGB Conc 32.5 g/dl (31.0-37.0); Mean Corpuscular Hemoglobin 29.5 pg (25.0-35.0); Mean Corpuscular Volume 91 fL (80-100); Monocytes # (Auto) 0.6 Thou/mm3 (0.0-0.8); Monocytes % (Auto) 10 % (0-12); Neutrophils # (Auto) 3.9 Thou/mm3 (1.8-7.7); Neutrophils % (Auto) 68 % (37-80); Nucleated Red Blood Cell # 0.00 Thou/mm3 (0.00-0.00); Nucleated Red Blood Cell % 0 /100 WBC (0); Platelet Count 291 Thou/mm3 (140-440); RDW Standard Deviation 43.7 fL (36.4-46.3); Red Blood Count 4.38 Miln/mm3 (4.00-5.20); White Blood Count 5.7 Thou/mm3 (3.6-11.0)
[2024-12-29 13:16] LABS: Creatinine,Random Urine 145 mg/dL (30-125); Protein Total, Random Urine 57 mg/dL (1-14)
[2024-12-29 13:17] LABS: Albumin, Serum 4.5 gm/dL (3.4-4.8); Anion Gap 7 (7-16); BUN/Creatinine Ratio 16 Ratio (12-20); Blood Urea Nitrogen 13 mg/dL (9-23); Calcium 9.1 mg/dL (8.3-10.6); Calcium (Corrected) 9.1 mg/dL (8.5-10.1); Carbon Dioxide 31.1 mMol/L (20.0-31.0); Chloride 104 mMol/L (98-107); Creatinine (Component) 0.8 mg/dL (0.6-1.3); Glucose 77 mg/dL (74-106); Osmolality,Calculated 282 (275-295); Phosphorous 3.0 mg/dL (2.4-5.1); Potassium 3.8 mMol/L (3.4-5.1); Sodium 142 mMol/L (136-145); eGFR > 60 See Note
== END | disposition home or self-care (01) ==
LOC: CDIM 12:20 → COPL 12:41
PROVIDERS: PCP Family Medicine; Referring Provider Nurse Practitioner Family; Visit Provider Radiology Diagnostic Radiology
DX: M81.8 Other osteoporosis without current pathological fracture (principal); M85.88 Other specified disorders of bone density and structure, other site; R80.9 Proteinuria, unspecified; M32.9 Systemic lupus erythematosus, unspecified; E55.9 Vitamin D deficiency, unspecified
CPT/HCPCS: 36415; 77080; 80069; 82570; 84156; 85025

== ENCOUNTER → 2025-01-21 | Outpatient (CLI) | payer BC, SELFPAY ==
[2025-01-21 11:36] LABS: Collection Type, Urine Clean Catch
[2025-01-21 12:14] LABS: Basophils # (Auto) 0.0 Thou/mm3 (0.0-0.2); Basophils % (Auto) 1 % (0-2.5); Eosinophils # (Auto) 0.1 Thou/mm3 (0.0-0.5); Eosinophils % (Auto) 2 % (0-10); Hematocrit 40.3 % (36.0-46.0); Hemoglobin 13.1 g/dL (12.0-16.0); Immature Granulocytes Auto 0.02 Thou/mm3 (0.00-0.00); Lymphocytes # (Auto) 1.0 Thou/mm3 (1.0-4.8); Lymphocytes % (Auto) 17 % (10-50); Mean Corpuscular HGB Conc 32.5 g/dl (31.0-37.0); Mean Corpuscular Hemoglobin 29.4 pg (25.0-35.0); Mean Corpuscular Volume 91 fL (80-100); Monocytes # (Auto) 0.6 Thou/mm3 (0.0-0.8); Monocytes % (Auto) 10 % (0-12); Neutrophils # (Auto) 4.0 Thou/mm3 (1.8-7.7); Neutrophils % (Auto) 71 % (37-80); Nucleated Red Blood Cell # 0.00 Thou/mm3 (0.00-0.00); Nucleated Red Blood Cell % 0 /100 WBC (0); Platelet Count 352 Thou/mm3 (140-440); RDW Standard Deviation 44.1 fL (36.4-46.3); Red Blood Count 4.45 Miln/mm3 (4.00-5.20); White Blood Count 5.6 Thou/mm3 (3.6-11.0)
[2025-01-21 12:18] LABS: Bilirubin,Urine Negative (Negative); Blood,Urine Negative (Negative); Clarity,Urine Clear (Clear/Hazy); Color,Urine Lt-Yellow (Lt Yel-Yel); Culture Indicated,Urine Not Indicated; Glucose, Urine Negative (Negative); Ketones,Urine Negative (Negative); Leukocyte Esterase,Urine Positive (Negative); Nitrite,Urine Negative (Negative); PH,Urine 7.0 (5.0-7.0); Protein,Urine Trace (Neg - Trace); RBC,Urine 1 /hpf (0-3); Specific Gravity,Urine 1.015 (1.001-1.035); Squamous Epithelial Cell,Urine 2 /hpf (0-5); Urobilinogen,Urine Negative mg/dL (0.0-1.0); WBC,Urine 6 /hpf (0-5)
[2025-01-21 12:40] LABS: Alanine Aminotransferase 11 U/L (10-49); Albumin, Serum 4.7 gm/dL (3.4-4.8); Albumin/Globulin Ratio 2.4 (1.2-2.2); Alkaline Phosphatase 79 U/L (46-116); Anion Gap 9 (7-16); Aspartate Amino Transferase 21 U/L (0-34); BUN/Creatinine Ratio 14 Ratio (12-20); Bilirubin,Total 0.6 mg/dL (0.3-1.2); Blood Urea Nitrogen 11 mg/dL (9-23); C-Reactive Protein < 0.5 mg/dL (0.0-0.9); Calcium 9.5 mg/dL (8.3-10.6); Calcium (Corrected) 9.5 mg/dL (8.5-10.1); Carbon Dioxide 29.8 mMol/L (20.0-31.0); Chloride 104 mMol/L (98-107); Creatinine (Component) 0.8 mg/dL (0.6-1.3); Globulin 2.0 gm/dL (2.3-3.5); Glucose 87 mg/dL (74-106); Osmolality,Calculated 283 (275-295); Potassium 3.8 mMol/L (3.4-5.1); Sodium 143 mMol/L (136-145); Total Protein 6.7 gm/dL (5.7-8.2); eGFR > 60 See Note
[2025-01-21 12:48] LABS: Sed Rate (ESR) 4 mm/hr (0-30)
[2025-01-25 06:19] LABS: Complement Component C3* 128 mg/dL (83-193); Complement Component C4c* 20 mg/dL (15-57); DNA (ds) Antibody* 2 IU/mL
== END | disposition home or self-care (01) ==
LOC: COPL 11:05
PROVIDERS: PCP Family Medicine; Referring Provider Internal Medicine Rheumatology; Visit Provider Internal Medicine Rheumatology
DX: M32.9 Systemic lupus erythematosus, unspecified (principal); Z79.899 Other long term (current) drug therapy
CPT/HCPCS: 36415; 80053; 81001; 85025; 85652; 86140; 86160; 86225

== ENCOUNTER 2025-01-23 19:57 | Emergency (ER) | payer BC, SELFPAY ==
[2025-01-23 19:57] VITALS: BMI 25.7
--- NOTE | 2025-01-23 20:19 | PD.EDANKLE ---
Lower Extremity Injury RME/HPI General Chief Complaint: Ankle/Foot Injury Stated Complaint: TWISTED RIGHT ANKLE Time Seen by Provider: 01/23/25 20:11 Arrival date/time: 01/23/25 19:57 RME / HPI RME / HPI Narrative: See MDM for Dr. Mansfield's HPI documentation. Related Data Home Medications ?Medication ?Instructions ?Recorded ?Confirmed doxycycline hyclate 20 mg tablet 20 mg PO BID 06/21/24 06/21/24 fluticasone furoate 27.5 1 spray intranasal QDAY 06/21/24 06/21/24 mcg/actuation nasal spray,suspension hydroxychloroquine 200 mg tablet 200 mg PO QDAY 06/21/24 06/21/24 lamotrigine 150 mg tablet 150 mg PO QDAY 06/21/24 06/21/24 omeprazole 20 mg capsule,delayed 20 mg PO QDAY 06/21/24 06/21/24 release tamsulosin 0.4 mg capsule 0.4 mg PO QDAY 06/21/24 06/21/24 Previous Rx's ?Medication ?Instructions ?Recorded acetaminophen 300 mg-codeine 30 mg 2 tab PO Q8H PRN pain #20 tabs 01/23/25 tablet Allergies Allergy/AdvReac Type Severity Reaction Status Date / Time No Known Allergies Allergy Verified 06/21/24 10:05 Review of Systems Review of Systems Systems Reviewed: All systems reviewed, normal except as documented Past Medical History Past Medical History NEUROLOGIC: Positive Neurological Disorders, Meningitis (at 8 months old) and Seizures (1996); Negative Migraine (headaches) CARDIAC: Positive Cardiac Disorders (Clots in right jugular vein); Negative Congestive Heart Failure RESPIRATORY: Negative Chronic Obstructive Pulmonary Disease (COPD) GASTROINTESTINAL: Positive Gastrointestinal Disorders, Gall Bladder Disease (gall stone) and Gastroesophageal Reflux Disease; Negative Hiatal Hernia GENITOURINARY: Positive Genitourinary Disorders and Inguinal Hernia (surgery 1982); Negative Renal Disease REPRODUCTIVE: Positive Breast Cancer and Previous Pregnancies (3); Negative Pelvic Inflammatory Disease MUSCULOSKELETAL: Positive Musculoskeletal Disorders, Osteoporosis and Fractures (left elbow 1971) ENDOCRINE: Negative Endocrine Disorders or Diabetes Mellitus Type 1 HEMATOLOGIC: Positive Clotting Problems (right jugular vein) OTHER HISTORY: Positive Hospitalization, Autoimmune Disease (Lupus), Chemotherapy (x7), Radiation Therapy (x35), Chicken Pox and Breast Cancer Family History FAMILY HISTORY: Positive Family Gastrointestinal Problems (mom-polyps, diverticulitis; dad-hernia) and Family Surgery (dad-intestinal gangrene, Antithrombin III) Surgical History SURGICAL: Positive Ear Surgery, Tonsillectomy (1978), Abdominal Surgery, Lumpectomy (x2 on left) and Tubal Ligation; Negative Cardiac Surgery Social History SMOKING STATUS: Never smoker ED Exam Narrative Physical exam: See [facility] for Dr. Mansfield's physical exam documentation. Course Quality Measures none Orders Category Date Time Status Crutches .NOW Care 01/23/25 20:53 Completed Splint / Immobilizer STAT Care 01/23/25 20:53 Completed XR ankle comp RT min 3V Stat Exams 01/23/25 20:20 Completed XR foot comp RT min 3V Stat Exams 01/23/25 20:20 Completed ACETAMINOPHEN w/COD 300-30 [Tylenol w/Cod #3] Med 01/23/25 20:53 Discontinued 2 tab PO X1 ONE Ibuprofen Tab [Motrin Tab] Med 01/23/25 20:53 Discontinued 600 mg PO X1 ONE Vital Signs Vital signs: Vital Signs Temperature 99.4 F 01/23/25 20:20 Pulse Rate 72 01/23/25 20:20 Respiratory Rate 17 01/23/25 20:20 Blood Pressure 159/88 H 01/23/25 20:20 Pulse Oximetry (%) 97 01/23/25 20:20 Oxygen Delivery Method Room Air 01/23/25 20:20 Extremity Injury, Lower [facility] Narrative [facility] Narrative:: This section includes all my notes and documentations, including HPI, PE, and ED course. Sanju Mansfield MD HPI: 59-year-old female here with right ankle injury just [employer]. While climbing down a truck, she twisted her right ankle inward. She reports severe pain and swelling. No head injury. No other injury. No other complaints. ROS: All negative except as documented in HPI. Physical Exam: General: Alert and oriented. No acute distress when remaining still. Eyes: Conjunctivae and lids clear. ENT: No nasal congestion. Neck: Supple. Lungs: No respiratory distress. Skin: Warm and dry. Neuro: Alert and oriented X 3. Right ankle/foot: Remarkable for severe lateral edema with limited range of motion due to pain. I reviewed all diagnostic test results. My interpretation of the right ankle/foot x-rays is distal fibular fracture. At this point, diagnoses include: Closed right ankle fracture. Treatment here included: Splint Crutches Two Tylenol #3 Ibuprofen 600 mg She felt better. Recommended outpatient management. Based on my best medical judgment, made decision no further evaluation or treatment indicated at this time. Patient understands and agrees to the discharge instructions customized and printed, see below. Discharge Instructions from Dr. Mansfield printed for you: 1. Keep the splint clean and dry and no weightbearing using the crutches until cleared by a doctor taking care of you. 2. Elevate above the waist level for 3 days is much as possible. This is extremely important to decrease inflammation. 3. Ibuprofen 400 mg every 6-8 hours today and tomorrow to decrease inflammation then as needed. 4. Tylenol with codeine for pain. 5. See a private doctor on 01/24/2025 for recheck. Ask for referral to see orthopedic surgeon. 6. Seek immediate medical care with intolerable pain, if you can't move your toes, your toes turn cold and blue, or with any concerns. Sanju Mansfield MD Patient data External records reviewed:: [facility] previous records (Per chart review, patient has no relevant previous ED visits.) Clinical information provided by:: patient Social determinants that could affect healthcare access:: none Patient has the following chronic illnesses:: breast CA, lupus How is presenting disease/condition affected by chronic disease/condition?: uneffected by Evaluation data The following diagnostics were reviewed and interpreted by me:: radiology exam(s) Lab and/or radiology exams considered but not ordered:: none Interpretation Summary: I reviewed all diagnostic test results. My interpretation of the right ankle/foot x-rays is distal fibular fracture. Medications / Prescriptions Medications or Prescriptions considered but not ordered:: none Medication administrations:: Medication Administration History Discontinued Medications Acetaminophen/Codeine Phosphate (Acetaminophen W/Cod 300-30 Tablet) 2 tab PO X1 ONE Stop: 01/23/25 20:54 Last Admin: 01/23/25 22:00 Dose: 2 tab Documented By: Ibuprofen (Ibuprofen Tab 600 Mg Tablet) 600 mg PO X1 ONE Stop: 01/23/25 20:54 Last Admin: 01/23/25 22:00 Dose: 600 mg Documented By: Treatment here included: Splint Crutches Two Tylenol #3 Ibuprofen 600 mg Consultations Consultation(s) initiated? (list below): No Diagnosis Extremity Injury, Lower Differential Diagnosis: ankle sprain and strain, ankle fracture and other (foot fracture, contusion) Most likely diagnosis given after review of the tests above:: Closed right ankle fracture Admission Indicated Admission indicated?: not indicated Explain why admission is indicated or not indicated:: With no condition needing emergent intervention, there was no indication for admission. Admission Request Was there a request for admission?: No Disposition Plan Disposition Plan: Discharge Discharge Attestation Discharge Attestation: The patient and all family members were given an opportunity to ask questions and understood the discharge instructions. Discharge instructions specifically effects, indications for sooner follow up or return to the emergency department, and the expected course of current diagnosis. Patient condition: Stable Discharge Plan Plan Patient Disposition: HOME (Self Care) Prescriptions/Referrals Prescriptions/Med Rec: New acetaminophen-codeine 300-30 mg tablet 2 tab PO Q8H MDD 6 PRN (Reason: pain) Qty: 20 0RF No Action omeprazole 20 mg capsule,delayed release(DR/EC) 20 mg PO QDAY doxycycline hyclate 20 mg tablet 20 mg PO BID hydroxychloroquine 200 mg tablet 200 mg PO QDAY lamotrigine 150 mg tablet 150 mg PO QDAY tamsulosin 0.4 mg capsule 0.4 mg PO QDAY fluticasone furoate 27.5 mcg/actuation spray,suspension 1 spray intranasal QDAY Rx Instructions: into each nostril Referrals: Eleazar Lewis MD [Primary Care Provider, Family Practice] - In 1 week Problem List Clinical Impression: Closed right ankle fracture Patient/Caregiver Discharge Instructions Discharge Activity: activity as tolerated Education Materials: ED Ankle Fracture, Distal Fibula Additional Instructions: Discharge Instructions from Dr. Mansfield printed for you: 1. Keep the splint clean and dry and no weightbearing using the crutches until cleared by a doctor taking care of you. 2. Elevate above the waist level for 3 days is much as possible. This is extremely important to decrease inflammation. 3. Ibuprofen 400 mg every 6-8 hours today and tomorrow to decrease inflammation then as needed. 4. Tylenol with codeine for pain. 5. See a private doctor on 01/24/2025 for recheck. Ask for referral to see orthopedic surgeon. 6. Seek immediate medical care with intolerable pain, if you can't move your toes, your toes turn cold and blue, or with any concerns. Print Language: Yakut Stand Alone Forms: [facility] Award Info., Patient Portal Info Letter
[2025-01-23 20:20] VITALS: BP 159/88; PULSE 72; RESP 17; TEMP 37.4; O2SAT 97
--- NOTE | 2025-01-23 20:20 | XR_ITS ---
EXAMINATION: Ankle, right 3 views. Technique: Ankle AP, oblique, lateral 3 views Date and time of exam: December 23, 2024, 2029 hours INDICATIONS: Injury to the ankle today, ankle pain. FINDINGS: Acute fracture distal fibular shaft, minimal offset No ankle dislocation IMPRESSION: Acute fracture distal fibular shaft
--- NOTE | 2025-01-23 20:20 | XR_ITS ---
Examination: Foot, right, 3 views Technique: AP, oblique, lateral views foot, 3 views Date and time of exam: December 23, 2024, 2029 hours INDICATIONS: Injury of the foot today, foot pain. FINDINGS: Prominent osteopenia Acute fracture distal fibular shaft with minimal offset Bones of the foot intact IMPRESSION: Acute fracture distal fibular shaft
[2025-01-23] MEDS: IBUPROFEN TAB 600 MG TABLET PO (22:00)
[2025-01-23] MEDS: ACETAMINOPHEN w/COD 300-30 TABLET 2 TAB PO (22:00)
== END 2025-01-23 22:06 | disposition home or self-care (01) ==
PROVIDERS: Emergency Provider Emergency Medicine; PCP Family Medicine
DX: S82.891A Other fracture of right lower leg, initial encounter for closed fracture (principal); W50.2XXA Accidental twist by another person, initial encounter; Y93.89 Activity, other specified; Y92.812 Truck as the place of occurrence of the external cause
CPT/HCPCS: 29515; 73610; 73630; 99283; A9270

== ENCOUNTER 2025-02-17 21:31 | Emergency (ER) | payer BC, SELFPAY ==
[2025-02-17 21:32] VITALS: BMI 26.1
[2025-02-17 22:16] VITALS: BP 158/62; PULSE 76; RESP 18; TEMP 36.8; O2SAT 98
--- NOTE | 2025-02-17 22:23 | XR_ITS ---
Examination: CT abdomen with intravenous contrast CT pelvis with intravenous contrast 2-D coronal reconstructions 2-D sagittal reconstructions Date and time of exam: February 18, 2025, 0249 hours, comparison June 07, 2024 INDICATIONS: Right-sided abdominal pain today. CTDI: vol (mGy) 9.15 DLP: (mGycm) 528 Technique: Multiple axial sections of the abdomen and pelvis have been obtained. 64 slice high-resolution scanner used. 3 mm axial sections have been obtained, post intravenous injection 60 cc [id number] 2-D sagittal, coronal reconstructions obtained. Low dose protocols were performed. One or more of the following dose reduction techniques were used; automated exposure control, adjustment of the mA and/or KV according to patient size, use of iterative reconstruction technique. Findings: 5 mm pulmonary nodule in the left lower lobe No visualized liver or splenic lesion Normal adrenal glands Cholelithiasis No pancreatic mass No common bile duct stones Mild to moderate right hydronephrosis, 5 mm calculus at the right ureterovesical junction Normal appendix No pelvic mass Bladder intact Osseous structures intact IMPRESSION: 5 mm pulmonary nodule left lower lobe, consider elective CT chest without contrast follow-up Mild to moderate right hydronephrosis, 5 mm right ureterovesical junction calculus
--- NOTE | 2025-02-17 22:32 | PD.EDABDPN ---
ED Abdominal Pain RME/HPI General Chief Complaint: Abdominal Pain Stated complaint: R FLANK PAIN Time seen by provider: 02/17/25 22:23 Arrival date/time: 02/17/25 21:31 59F with history of breast cancer (remission) and lupus presents to ED with 1 day of R-sided ab pain. Some diarrhea this morning. Several episodes of N/V. No dysuria/hematuria. Limitations: no limitations Related Data Home Medications ?Medication ?Instructions ?Recorded ?Confirmed doxycycline hyclate 20 mg tablet 20 mg PO BID 06/21/24 06/21/24 fluticasone furoate 27.5 1 spray intranasal QDAY 06/21/24 06/21/24 mcg/actuation nasal spray,suspension hydroxychloroquine 200 mg tablet 200 mg PO QDAY 06/21/24 06/21/24 lamotrigine 150 mg tablet 150 mg PO QDAY 06/21/24 06/21/24 omeprazole 20 mg capsule,delayed 20 mg PO QDAY 06/21/24 06/21/24 release tamsulosin 0.4 mg capsule 0.4 mg PO QDAY 06/21/24 06/21/24 Previous Rx's ?Medication ?Instructions ?Recorded acetaminophen 300 mg-codeine 30 mg 2 tab PO Q8H PRN pain #20 tabs 01/23/25 tablet ondansetron 4 mg disintegrating 4 mg PO Q8H PRN nausea and 02/18/25 tablet vomiting #14 tabs tamsulosin 0.4 mg capsule (Flomax) 0.4 mg PO QDAY #14 caps 02/18/25 Allergies Allergy/AdvReac Type Severity Reaction Status Date / Time No Known Allergies Allergy Verified 02/17/25 21:34 Review of Systems Review of Systems Systems Reviewed: All systems reviewed, normal except as documented Gastrointestinal Gastrointestinal: Reports as per HPI, Reports abdominal pain, Reports diarrhea and Reports nausea Past Medical History Past Medical History NEUROLOGIC: Positive Neurological Disorders, Meningitis (at 8 months old) and Seizures (1996); Negative Migraine (headaches) CARDIAC: Positive Cardiac Disorders (Clots in right jugular vein); Negative Congestive Heart Failure RESPIRATORY: Negative Chronic Obstructive Pulmonary Disease (COPD) GASTROINTESTINAL: Positive Gastrointestinal Disorders, Gall Bladder Disease (gall stone) and Gastroesophageal Reflux Disease; Negative Hiatal Hernia GENITOURINARY: Positive Genitourinary Disorders and Inguinal Hernia (surgery 1982); Negative Renal Disease REPRODUCTIVE: Positive Breast Cancer and Previous Pregnancies (3); Negative Pelvic Inflammatory Disease MUSCULOSKELETAL: Positive Musculoskeletal Disorders, Osteoporosis and Fractures (left elbow 1971) ENDOCRINE: Negative Endocrine Disorders or Diabetes Mellitus Type 1 HEMATOLOGIC: Positive Clotting Problems (right jugular vein) OTHER HISTORY: Positive Hospitalization, Autoimmune Disease (Lupus), Chemotherapy (x7), Radiation Therapy (x35), Chicken Pox and Breast Cancer Family History FAMILY HISTORY: Positive Family Gastrointestinal Problems (mom-polyps, diverticulitis; dad-hernia) and Family Surgery (dad-intestinal gangrene, Antithrombin III) Surgical History SURGICAL: Positive Ear Surgery, Tonsillectomy (1978), Abdominal Surgery, Lumpectomy (x2 on left) and Tubal Ligation; Negative Cardiac Surgery Social History SMOKING STATUS: Never smoker ED Exam General Limitations: Present no limitations General appearance: Present alert and in no apparent distress Head Head exam: Present atraumatic Neck Neck exam: Present normal inspection, full ROM and trachea midline Chest Chest inspection: Present normal inspection and symmetric chest wall rise Abdominal Exam Abdominal exam: Present soft Abdominal tenderness: Present RUQ and RLQ Back Exam Back exam: Present CVA tenderness (R) Neurological Exam Neurological exam: Present alert and oriented X3 Psychiatric Psychiatric exam: Present normal affect and normal mood Skin Skin exam: Present warm, dry, intact and normal color Course Quality Measures none Orders Category Date Time Status CT Screening NOW Care 02/17/25 22:23 Active Insert IV NOW Care 02/17/25 22:[address] abdomen pelvis w con Stat Exams 02/17/25 22:23 Taken CBC Stat Lab 02/17/25 22:59 Completed CMP [Comprehensive Metabolic Panel] Stat Lab 02/17/25 22:59 Completed Drug Screen,Urine Stat Lab 02/17/25 22:41 Completed Lactate (Lactic Acid) Stat Lab 02/17/25 22:59 Completed Lipase Stat Lab 02/17/25 22:59 Completed Urinalysis, C/S if Indicated Stat Lab 02/17/25 22:41 Completed Fluconazole [Diflucan] Med 02/18/25 03:17 Discontinued 150 mg PO X1 ONE Morphine* Inj Med 02/17/25 22:24 Discontinued 4 mg IV X1 ONE Ondansetron Inj [Zofran Inj] Med 02/17/25 22:24 Discontinued 4 mg IVP X1 ONE Potassium Chloride [K-Dur] Med 02/17/25 23:39 Discontinued 40 meq PO X1 ONE Tamsulosin HCl [Flomax] Med 02/18/25 04:37 Discontinued 0.4 mg PO X1 ONE Vital Signs Vital signs: Vital Signs Temperature 98.3 F 02/17/25 22:16 Pulse Rate 76 02/17/25 22:16 Respiratory Rate 18 02/17/25 22:16 Blood Pressure 158/62 H 02/17/25 22:16 Pulse Oximetry (%) 98 02/17/25 22:16 Oxygen Delivery Method Room Air 02/17/25 22:16 O2 at 98% on RA and WNLs Abdominal Pain MDM MDM Narrative MDM Narrative:: 59F with history of breast cancer (remission) and lupus presents to ED with 1 day of R-sided ab pain. Some diarrhea this morning. Several episodes of N/V. No dysuria/hematuria. Physical exam reveals R-sided CVA and ab tenderness/soreness. Patient is afebrile, alert, but appears to be in pain. Telerad CT reveals 5 mm R-sided kidney stone. Incidental 5 mm L lung nodule, which patient is aware of. Moderate leukocytosis. CMP mildly low K (likely GI loss), repleted. Normal lipase. UA mostly blood. No gross UTI. Will treat yeast in UA. Patient data External records reviewed:: [facility] previous records Clinical information provided by:: patient Social determinants that could affect healthcare access:: none Patient has the following chronic illnesses:: breast cancer (remission) and lupus How is presenting disease/condition affected by chronic disease/condition?: exacerbated by Evaluation data The following diagnostics were reviewed and interpreted by me:: lab results and radiology exam(s) Lab and/or radiology exams considered but not ordered:: ordered Interpretation Summary: above Medications / Prescriptions Medications or Prescriptions considered but not ordered:: ordered Medication administrations:: Medication Administration History Discontinued Medications Fluconazole (Fluconazole 150 Mg Tablet) 150 mg PO X1 ONE Stop: 02/18/25 03:18 Last Admin: 02/18/25 04:16 Dose: 150 mg Documented By: MARK Morphine Sulfate (Morphine Sulf Inj 4 Mg/Ml Vial) 4 mg IV X1 ONE Stop: 02/17/25 22:25 Last Admin: 02/18/25 02:19 Dose: 4 mg Documented By: JANUSZ Comments: TO 20G IV TO RIGHT WRIST Ondansetron HCl (Ondansetron Inj 2 Mg/Ml Inj 2 Ml) 4 mg IVP X1 ONE; Protocol Stop: 02/17/25 22:25 Last Admin: 02/18/25 02:19 Dose: 4 mg Documented By: JANUSZ Potassium Chloride (Potassium Chloride 20 Meq Tabcr) 40 meq PO X1 ONE Stop: 02/17/25 23:40 Last Admin: 02/18/25 02:17 Dose: 40 meq Documented By: JANUSZ Tamsulosin HCl (Tamsulosin Hcl 0.4 Mg Capsule) 0.4 mg PO X1 ONE Stop: 02/18/25 04:38 above Consultations Consultation(s) initiated? (list below): No Diagnosis Differential diagnosis abdominal pain: abdominal pain, acute appendicitis, calculus of kidney, constipation, diverticulitis, gastroenteritis, pancreatitis, small bowel obstruction and other (biliary disease, torsion, colitis, ) Most likely diagnosis given after review of the tests above:: kidney stone Admission Indicated Admission indicated?: not indicated Admission Request Was there a request for admission?: No Disposition Plan Disposition Plan: Discharge Discharge Attestation Discharge Attestation: The patient and all family members were given an opportunity to ask questions and understood the discharge instructions. Discharge instructions specifically effects, indications for sooner follow up or return to the emergency department, and the expected course of current diagnosis. Patient condition: Stable Discharge Plan Plan Patient Disposition: HOME (Self Care) Discharge Disposition comment: Stable Prescriptions/Referrals Prescriptions/Med Rec: New tamsulosin [Flomax] 0.4 mg capsule 0.4 mg PO QDAY Qty: 14 0RF ondansetron 4 mg tablet,disintegrating 4 mg PO Q8H PRN (Reason: nausea and vomiting) Qty: 14 0RF No Action omeprazole 20 mg capsule,delayed release(DR/EC) 20 mg PO QDAY doxycycline hyclate 20 mg tablet 20 mg PO BID hydroxychloroquine 200 mg tablet 200 mg PO QDAY lamotrigine 150 mg tablet 150 mg PO QDAY tamsulosin 0.4 mg capsule 0.4 mg PO QDAY fluticasone furoate 27.5 mcg/actuation spray,suspension 1 spray intranasal QDAY Rx Instructions: into each nostril acetaminophen-codeine 300-30 mg tablet 2 tab PO Q8H MDD 6 PRN (Reason: pain) Qty: 20 0RF Referrals: Eleazar Lewis MD [Primary Care Provider, Family Practice] - In 1 week Problem List Clinical Impression: Calculus of kidney Patient/Caregiver Discharge Instructions Education Materials: ED Kidney Stone w/ Colic Additional Instructions: Please follow-up with PCP within 24-48 hours and return immediately if symptoms worsen. NSAIDs like ibuprofen tend to work better for this type of pain. 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 Mansfield
[2025-02-17 23:12] LABS: Lactate (Lactic Acid) 1.9 mMol/L (0.4-2.0)
[2025-02-17 23:12] LABS: Collection Type, Urine Clean Catch
[2025-02-17 23:15] LABS: Basophils # (Auto) 0.0 Thou/mm3 (0.0-0.2); Basophils % (Auto) 0 % (0-2.5); Eosinophils # (Auto) 0.0 Thou/mm3 (0.0-0.5); Eosinophils % (Auto) 0 % (0-10); Hematocrit 39.6 % (36.0-46.0); Hemoglobin 13.1 g/dL (12.0-16.0); Immature Granulocytes Auto 0.04 Thou/mm3 (0.00-0.00); Lymphocytes # (Auto) 0.5 Thou/mm3 (1.0-4.8); Lymphocytes % (Auto) 4 % (10-50); Mean Corpuscular HGB Conc 33.1 g/dl (31.0-37.0); Mean Corpuscular Hemoglobin 29.0 pg (25.0-35.0); Mean Corpuscular Volume 88 fL (80-100); Monocytes # (Auto) 0.8 Thou/mm3 (0.0-0.8); Monocytes % (Auto) 6 % (0-12); Neutrophils # (Auto) 12.5 Thou/mm3 (1.8-7.7); Neutrophils % (Auto) 90 % (37-80); Nucleated Red Blood Cell # 0.00 Thou/mm3 (0.00-0.00); Nucleated Red Blood Cell % 0 /100 WBC (0); Platelet Count 327 Thou/mm3 (140-440); RDW Standard Deviation 42.3 fL (36.4-46.3); Red Blood Count 4.52 Miln/mm3 (4.00-5.20); White Blood Count 13.9 Thou/mm3 (3.6-11.0)
[2025-02-17 23:23] LABS: Amorphous Crystals,Urine Present (Absent); Bacteria,Urine Rare; Bilirubin,Urine Negative (Negative); Blood,Urine 2+ (Negative); Budding Yeast,Urine Present; Clarity,Urine Turbid (Clear/Hazy); Color,Urine Lt-Yellow (Lt Yel-Yel); Culture Indicated,Urine Not Indicated; Glucose, Urine Negative (Negative); Ketones,Urine 1+ (Negative); Leukocyte Esterase,Urine Negative (Negative); Nitrite,Urine Negative (Negative); PH,Urine 8.0 (5.0-7.0); Protein,Urine 1+ (Neg - Trace); RBC,Urine 94 /hpf (0-3); Specific Gravity,Urine 1.020 (1.001-1.035); Squamous Epithelial Cell,Urine 1 /hpf (0-5); Urobilinogen,Urine Negative mg/dL (0.0-1.0); WBC,Urine 9 /hpf (0-5)
[2025-02-17 23:25] LABS: Amphetamine/Methamp Scrn,U Negative (Negative); Barbiturate Screen,Urine Negative (Negative); Benzodiazepines Screen,Urine Negative (Negative); Benzoylecgonine Screen, Ur Negative (Negative); Fentanyl Screen,Urine Negative (Negative); Opiate Screen,Urine Negative (Negative); THC Screen,Urine Negative (Negative)
[2025-02-17 23:37] LABS: Alanine Aminotransferase 13 U/L (10-49); Albumin, Serum 4.9 gm/dL (3.4-4.8); Albumin/Globulin Ratio 1.9 (1.2-2.2); Alkaline Phosphatase 97 U/L (46-116); Anion Gap 12 (7-16); Aspartate Amino Transferase 26 U/L (0-34); BUN/Creatinine Ratio 16 Ratio (12-20); Bilirubin,Total 0.6 mg/dL (0.3-1.2); Blood Urea Nitrogen 14 mg/dL (9-23); Calcium 9.6 mg/dL (8.3-10.6); Calcium (Corrected) 9.6 mg/dL (8.5-10.1); Carbon Dioxide 27.1 mMol/L (20.0-31.0); Chloride 103 mMol/L (98-107); Creatinine (Component) 0.9 mg/dL (0.6-1.3); Estimated Creatinine Clearance 63.4 mL/min (>60); Globulin 2.6 gm/dL (2.3-3.5); Glucose 133 mg/dL (74-106); Lipase 37 U/L (12-53); Osmolality,Calculated 285 (275-295); Potassium 3.1 mMol/L (3.4-5.1); Sodium 142 mMol/L (136-145); Total Protein 7.5 gm/dL (5.7-8.2); eGFR > 60 See Note
[2025-02-18 02:05] VITALS: BP 154/88; PULSE 81; RESP 17; TEMP 37; O2SAT 98
[2025-02-18] MEDS: ONDANSETRON INJ 2 MG/ML INJ 2 ML 4 MG IVP (02:19)
[2025-02-18] MEDS: MORPHINE SULF INJ 4 MG/ML VIAL IV (02:19)
[2025-02-18] MEDS: FLUCONAZOLE 150 MG TABLET PO (04:16)
--- NOTE | 2025-02-18 04:32 | PRELIM_ITS ---
CT scan of the abdomen and pelvis with intravenous contrast (axial sections with sagittal and coronal reformats) February 18, 2025 at 0249 hours Clinical History: R-sided abdominal pain. Comparison: No prior study is available for comparison. Findings: 5 mm left lower lobe nodule, (image 23). The liver, adrenal glands, spleen, pancreas are unremarkable. Cholelithiasis. Normal left kidney. Moderate right hydroureteronephrosis and perinephric fat stranding with a 5 mm calculus at the ureterovesicular junction, (image 197). Normal bladder. There is no adnexal cyst or mass. Bowel caliber is normal. The appendix is normal, best seen on image 154. No renal calculi bilaterally. No acute osseous process. Impression: 5 mm calculus at the right ureterovesicular junction with moderate hydroureteronephrosis. Cholelithiasis. 5 mm left lower lobe nodule. Consider follow-up Per Fleischner criteria. Report Electronically Signed By: Manuel Lea 02/18/2025 4:31:59 AM [EST]
[2025-02-18] MEDS: TAMSULOSIN HCL 0.4 MG CAPSULE PO (04:47)
== END 2025-02-18 04:55 | disposition home or self-care (01) ==
PROVIDERS: Physician Assistant; Emergency Provider Emergency Medicine; PCP Family Medicine
DX: N20.0 Calculus of kidney (principal)
CPT/HCPCS: 36415; 74177; 80053; 80307; 81001; 83605; 83690; 85025; 96374; 99284; A4649; J2270; J2405; Q9967; A9270